=== PATIENT | male | born 1950 | race American Indian/Alaskan Native ===

== ENCOUNTER 2016-06-11 06:05 | Day surgery (SDC) | payer MEDICARE ==
[~2016-06-11 06:05] MED LIST: PEPCID PO NR
[2016-06-11] MEDS ORDERED: NACL BACTERIOSTATIC INFILTRATI ONE (06:28)
[2016-06-11] MEDS ORDERED: PERCOCET 5/325 PO PRN (06:45)
--- NOTE | 2016-06-11 06:45 | Anesthesia Consultation ---
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) Hx Sleep Apnea: No (GUILHERME PRE SCREEN HIGH RISK) - Cardiovascular System Hx Hypertension: Yes (X 4 YRS) Hx Coronary Artery Disease: No Hx Heart Attack/AMI: No Hx Angina: No Hx Cardia Arrhythmia: No Hx Heart Murmur: No - Central Nervous System Hx Neuromuscular Disorder: (s/p shingles; hx right leg fx) Hx Psychiatric Problems: No - Gastrointestinal Hx Gastroesophageal Reflux Disease: No - Endocrine Hx End Stage Renal Disease: No Hx Liver Disease: No Hx Non-Insulin Dependent Diabetes: No Hx Thyroid Disease: No - Other Systems Hx Alcohol Use: No Hx Substance Use: No Hx Cancer: Yes (Prostate CA/RADIATION 2014)
--- NOTE | 2016-06-11 06:45 | Anesthesia Day of Surgery ---
Anesthesia Day of Surgery - Day of Surgery Patient Examined: Yes Patient H&P Reviewed: Yes Patient is NPO: Yes
[2016-06-11] MEDS: NACL 0.9% 1000 ML 1,000 ML IV SCH ×2 (06:55→09:15)
[2016-06-11] MEDS ORDERED: SUBLIMAZE ONE (07:13)
[2016-06-11] MEDS ORDERED: DIPRIVAN 10 MG/ML IV ONE (07:13)
[2016-06-11] MEDS ORDERED: XYLOCAINE MPF 2% ONE (07:13)
[2016-06-11] MEDS: VERSED IV NR ×2 (07:15→08:00)
[2016-06-11 07:16] LABS: Hematocrit 35.5 % (35.5-45.6); Hemoglobin 11.1 gm/dl (11.8-15.2)
[2016-06-11 07:30] LABS: BUN/Creatinine Ratio 13.33; Calcium 9.3 mg/dL (8.4-10.2); Chloride 102.5 mmol/L (98-107); Potassium 4.3 mmol/L (3.6-5.0)
[2016-06-11] MEDS ORDERED: ePHEDrine SULFATE ONE (08:22)
[2016-06-11] MEDS ORDERED: DECADRON ONE (08:27)
[2016-06-11] MEDS ORDERED: ZOFRAN ONE (08:27)
[2016-06-11] MEDS ORDERED: OMNIPAQUE (300 MG) IV ONE (08:34)
[2016-06-11] MEDS ORDERED: WATER FOR IRRIG STERILE IR ONE (08:34)
[2016-06-11] MEDS ORDERED: ANCEF/STERILE WATER 2 GM/20 ML IV NR (09:00)
--- NOTE | 2016-06-11 09:00 | Post Operative Note ---
Pre-op diagnosis: L ureteral stricture Post-op diagnosis: same Findings: as above Procedure: cysto l stent exchange Anesthesia: GETA Surgeon: HERMILA HALLMAN Estimated blood loss: none Pathology: none Condition: stable Disposition: PACU
--- NOTE | 2016-06-11 09:02 | Discharge Summary ---
Short Stay Discharge Plan Activity: other (no straining ) Weight Bearing Status: Full Weight Bearing Diet: regular Special Instructions: other (inc fluids ) Durable Medical Equipment Needed Upon Discharge: other (j stent ) Follow up with: SAV ZIEGLER II, MD [Primary Care Provider] - 7 Days HERMILA HALLMAN MD [Staff Physician] - 6 Weeks
[2016-06-11] MEDS: DILAUDID IV PRN ×2 (09:10→09:31)
--- NOTE | 2016-06-11 09:21 | Post Anesthesia Evaluation ---
- Post Anesthesia Evaluation Patient Participated: Yes Airway Patent: Yes Stable Respiratory Function: Yes Nausea/Vomiting: No Temp > 96.8F: Yes Pain Manageable: Yes Adequeate Hydration: Yes Anesthesia Complications: No Block Receding Appropriately: Not Applicable Patient on Ventilator: No
--- NOTE | 2016-06-11 09:26 | Operative Report ---
INDICATIONS: The patient is a gentleman with a history of extensive prostate cancer, post radical prostatectomy. He developed a post-radiation and likely from extensive disease, a left ureteral stricture. This has been treated with stenting. He has done quite well. We had a 7-Turkish 24 cm double J, he did well, now presents for stent exchange. DESCRIPTION OF PROCEDURE: The patient was brought to the operating room and placed on the operating table. Following induction of anesthesia, placed in lithotomy position, prepped and draped in usual sterile fashion. Cystourethroscopy showed the stent. There was minimal erythema around the stent. The urethra was quite narrow through the penile urethra, but no distinct stricture, just quite narrow. The bladder neck was wide open. At this point, the stent was grasped and wire placed up in the kidney and stent exchanged to a 7 x 24 once again. The patient tolerated the procedure well and brought to recovery room, family notified, without a Dow in stable condition. JOB# [id number] TREVOR/CINDY
--- NOTE | 2016-06-11 10:13 | XRay Report ---
SUPINE KUB: The abdominal gas pattern is unremarkable. No masses or organomegaly is identified and there is no gross evidence of free air or fluid. No significant soft tissue calcifications are noted. Left ureteral stent exchange was performed by Dr. Madsen. IMPRESSION: No acute abdominal process.
[2016-06-11 11:21] VITALS: BP 165/88
== END 2016-06-11 11:10 | disposition home or self-care (01) ==
LOC: OR 06:05
PROVIDERS: ATTEND Urology
DX: N13.1 Hydronephrosis with ureteral stricture, not elsewhere classified (principal); I10 Essential (primary) hypertension; Z90.79 Acquired absence of other genital organ(s); Z85.46 Personal history of malignant neoplasm of prostate; Z82.49 Family history of ischemic heart disease and other diseases of the circulatory system; Z80.8 Family history of malignant neoplasm of other organs or systems; Z87.891 Personal history of nicotine dependence
CPT/HCPCS: 36415; 52332; 74000; 80048; 85014; 85018; A4217; C2617; J1100; J1170; J2250; J2405; J2704; J3010; J7030; Q9967

== ENCOUNTER 2016-09-26 10:25 | Day surgery (SDC) | payer MEDICARE ==
[~2016-09-26 10:25] MED LIST changes: +NACL 0.9% 1000 ML 1,000 ML IV SCH
[2016-09-26] MEDS ORDERED: ZOFRAN IV PRN (11:26)
[2016-09-26] MEDS ORDERED: PERCOCET 5/325 PO PRN (11:26)
[2016-09-26] MEDS ORDERED: MORPHINE IV PRN (11:26)
--- NOTE | 2016-09-26 11:26 | Anesthesia Day of Surgery ---
Anesthesia Day of Surgery - Day of Surgery Patient Examined: Yes Patient H&P Reviewed: Yes Patient is NPO: Yes
--- NOTE | 2016-09-26 11:26 | Anesthesia Consultation ---
Anesthesia Consult and Med Hx Date of service: 09/26/16 - Airway Anesthetic Teeth Evaluation: Dentures, Edentulous ROM Head & Neck: Adequate Mental/Hyoid Distance: Adequate Mallampati Class: Class II Intubation Access Assessment: Probably Good - Pulmonary Exam CTA: Yes - Cardiac Exam Cardiac Exam: RRR - Pre-Operative Health Status ASA Pre-Surgery Classification: ASA3 Proposed Anesthetic Plan: General - Pulmonary Hx Smoking: Yes (STOPPED X 15 YRS-/4-1/2 PPD) Hx Asthma: No SOB: No Hx Sleep Apnea: No (GUILHERME PRE SCREEN HIGH RISK.) - Cardiovascular System Hx Hypertension: Yes (X 4 YRS) Hx Cardia Arrhythmia: No Hx Heart Murmur: No - Central Nervous System Hx Seizures: No CVA: No Hx Psychiatric Problems: No - Gastrointestinal Hx Gastroesophageal Reflux Disease: No - Endocrine Hx Renal Disease: No (hydronephrosis of right kidney 2/2 scarring) Hx End Stage Renal Disease: No Hx Liver Disease: No Hx Non-Insulin Dependent Diabetes: No Hx Thyroid Disease: No - Other Systems Hx Alcohol Use: No Hx Substance Use: No Hx Cancer: Yes (prostate 2015 s/p surgery and radiation) Hx Obesity: No - Additional Comments Anesthesia Medical History Comments: h/o shingles on right chest, no prior anesthesia problems.
[2016-09-26 11:42] LABS: BUN/Creatinine Ratio 14.11; Calcium 9.3 mg/dL (8.4-10.2); Chloride 102.6 mmol/L (98-107); Potassium 4.3 mmol/L (3.6-5.0)
[2016-09-26] MEDS ORDERED: ANCEF/STERILE WATER 2 GM/20 ML 2 GM/20 ML SYRINGE IV NR (12:00)
[2016-09-26] MEDS ORDERED: XYLOCAINE MPF 2% ONE (12:29)
[2016-09-26] MEDS ORDERED: DIPRIVAN 10 MG/ML IV ONE (12:29)
[2016-09-26] MEDS ORDERED: DILAUDID ONE (12:29)
[2016-09-26] MEDS ORDERED: ePHEDrine SULFATE ONE (13:00)
[2016-09-26] MEDS ORDERED: OMNIPAQUE (300 MG) IR ONE (13:08)
[2016-09-26] MEDS ORDERED: WATER FOR IRRIG STERILE IR ONE ×2 (13:09)
[2016-09-26] MEDS ORDERED: ZOFRAN ONE (13:18)
[2016-09-26] MEDS ORDERED: NACL 0.9% 1000 ML 1,000 ML ONE (13:20)
--- NOTE | 2016-09-26 13:59 | Post Operative Note ---
Date of procedure: 09/26/16 Pre-op diagnosis: L hydro Post-op diagnosis: same Findings: as above Procedure: cysto stent change Anesthesia: ARI Surgeon: HERMILA HALLMAN Estimated blood loss: none Pathology: none Condition: stable Disposition: PACU
--- NOTE | 2016-09-26 14:07 | Post Anesthesia Evaluation ---
- Post Anesthesia Evaluation Patient Participated: Yes Airway Patent: Yes Stable Respiratory Function: Yes Nausea/Vomiting: No Temp > 96.8F: Yes Pain Manageable: Yes Adequeate Hydration: Yes Anesthesia Complications: No
--- NOTE | 2016-09-26 14:11 | XRay Report ---
Retrograde pyelogram: Hydronephrosis. Initial image demonstrates a left nephroureteral stent. This apparently was exchanged for a new stent which appears in good positioning within the kidney and bladder. No other information.
--- NOTE | 2016-09-26 14:15 | Operative Report ---
PREOPERATIVE DIAGNOSES: Prostate cancer, distal left ureteral stricture. POSTOPERATIVE DIAGNOSES: Prostate cancer, distal left ureteral stricture. PROCEDURE: Cystoscopy, stent exchange. SURGEON: Dante Madsen MD ANESTHESIA: General. FINDINGS: This is a gentleman who has a distal ureteral stricture. Each time, we tried to take the stent out, he develops an infection, get sick, so he now presents for stent exchange. DESCRIPTION OF PROCEDURE: The patient was brought to the operating room and placed on the operating table. Following induction of anesthesia, placed in lithotomy position, prepped and draped in usual sterile fashion. Cystourethroscopy easily showed the stent, which was withdrawn from the meatus. A wire coiled in the kidney and a 7-Swedish J-stent coiled in the kidney and bladder. The patient tolerated the procedure well. No significant complication. No catheter was left. He was brought to recovery room in stable condition. JOB# [id number] TREVOR/CINDY
[2016-09-26 14:16] VITALS: BP 162/75
== END 2016-09-26 14:54 | disposition home or self-care (01) ==
LOC: OR 10:25
PROVIDERS: ATTEND Urology
DX: T83.592A Infection and inflammatory reaction due to indwelling ureteral stent, initial encounter (principal); N13.1 Hydronephrosis with ureteral stricture, not elsewhere classified; C61 Malignant neoplasm of prostate; I10 Essential (primary) hypertension; Z87.891 Personal history of nicotine dependence; Y83.8 Other surgical procedures as the cause of abnormal reaction of the patient, or of later complication, without mention of misadventure at the time of the procedure
CPT/HCPCS: 36415; 52332; 74000; 80048; A4217; J0690; J1170; J2405; J2704; J7030; Q9967; C1758; C1769; C2617

== ENCOUNTER 2017-02-15 12:25 | Day surgery (SDC) | payer BC, MEDICARE ==
--- NOTE | 2017-02-15 13:45 | Anesthesia Consultation ---
Anesthesia Consult and Med Hx Date of service: 02/15/17 - Airway Anesthetic Teeth Evaluation: Edentulous ROM Head & Neck: Adequate Mental/Hyoid Distance: Adequate Mallampati Class: Class II Intubation Access Assessment: Probably Good - Pulmonary Exam CTA: Yes - Cardiac Exam Cardiac Exam: RRR - Pre-Operative Health Status ASA Pre-Surgery Classification: ASA2 Proposed Anesthetic Plan: General - Pulmonary Hx Smoking: Yes (STOPPED X 15 YRS-06/06-06/04 PPD) Hx Asthma: No SOB: No Hx Sleep Apnea: No (GUILHERME PRE SCREEN HIGH RISK.) - Cardiovascular System Hx Hypertension: Yes (X 4 YRS) Hx Cardia Arrhythmia: No Hx Heart Murmur: No - Central Nervous System Hx Neuromuscular Disorder: (s/p shingles; hx right leg fx) Hx Seizures: No CVA: No Hx Psychiatric Problems: No - Gastrointestinal Hx Gastroesophageal Reflux Disease: No - Endocrine Hx Renal Disease: No Hx End Stage Renal Disease: No Hx Liver Disease: No Hx Non-Insulin Dependent Diabetes: No Hx Thyroid Disease: No - Other Systems Hx Alcohol Use: No Hx Substance Use: No Hx Cancer: Yes (prostate 2015 s/p surgery and radiation) Hx Obesity: No
--- NOTE | 2017-02-15 13:45 | Anesthesia Day of Surgery ---
Anesthesia Day of Surgery - Day of Surgery Patient Examined: Yes Patient H&P Reviewed: Yes Patient is NPO: Yes
[2017-02-15] MEDS ORDERED: DILAUDID IV NR (13:50)
[2017-02-15] MEDS ORDERED: DIPRIVAN 10 MG/ML IV ONE (13:56)
[2017-02-15] MEDS ORDERED: SUBLIMAZE ONE (13:56)
[2017-02-15] MEDS ORDERED: XYLOCAINE MPF 2% ONE (13:56)
[2017-02-15] MEDS ORDERED: ZOFRAN IV PRN (14:15)
[2017-02-15] MEDS ORDERED: ANCEF ONE (15:16)
[2017-02-15] MEDS ORDERED: WATER FOR IRRIG STERILE IR ONE (15:24)
[2017-02-15] MEDS ORDERED: OMNIPAQUE 300 MG/50 ML (CATH LAB) IV ONE (15:24)
[2017-02-15] MEDS ORDERED: ROBINUL ONE (15:35)
--- NOTE | 2017-02-15 16:11 | Fluoroscopy Report ---
Retrograde pyelogram: The initial image demonstrates the presence of a left nephroureteral stent. Numerous surgical clips are seen in the pelvis consistent with jagjit dissection. Injection of contrast into the right ureter is unremarkable with good opacification of the ureter and renal collecting system. At some point contrast apparently was injected on the left since is a small amount of contrast in slightly dilated calyces. A left internal stent was left in place.
--- NOTE | 2017-02-15 16:12 | Short Stay Summary ---
Short Stay Documentation Date of service: 02/15/17 - History H&P: obtained from office - Allergies and Medications Current Medications: Allergies No Known Allergies Allergy (Verified 06/01/16 14:18) Home Medications Medication Instructions Recorded Confirmed Last Taken Type Aspirin EC [Aspirin Enteric Coated 81 mg PO DAILY 12/02/14 02/11/17 02/08/17 History TAB] amLODIPine [Norvasc] 10 mg PO DAILY 12/02/14 02/15/17 02/14/17 History Active Medications Famotidine (Pepcid) 20 mg PO PREOP NR Stop: 02/15/17 23:59 Last Admin: 02/15/17 12:59 Dose: 20 mg Hydromorphone HCl (Dilaudid) 0.5 mg IV Q10MIN PRN PRN Reason: Pain , Severe (7-10) Stop: 02/18/17 14:16 Sodium Chloride (Nacl 0.9% 1000 Ml) 1,000 mls @ 75 mls/hr IV DIRECT BESSIE Last Admin: 02/15/17 13:00 Dose: 75 mls/hr - Brief post op/procedure progress note Date of procedure: 02/15/17 Post-op diagnosis: same Procedure: cysto, brpg, left stnet xchange 7x24 Anesthesia: GETA Findings: nodev Surgeon: RONALD MYERS Estimated blood loss: minimal Pathology: none Condition: stable - Hospital course Hospital course: orpacuhome - Disposition Condition at discharge: Good Disposition: DC-01 TO HOME OR SELFCARE Short Stay Discharge Plan Activity: advance as tolerated Diet: advance as tolerated Follow up with: HERMILA HALLMAN MD [Staff Physician] - 7 Days
[2017-02-15] MEDS: DILAUDID IV PRN ×3 (16:40→18:10)
[2017-02-15] MEDS ORDERED: NORCO 5/325 PO PRN ×2 (16:51→18:08)
[2017-02-15] MEDS ORDERED: NORMODYNE IV ONE ×2 (16:54→19:00)
[2017-02-15 20:30] VITALS: BP 150/76
--- NOTE | 2017-02-27 08:50 | Operative Report ---
UROLOGY OPERATION NOTE PREOPERATIVE DIAGNOSES: Prostate cancer and hydronephrosis. POSTOPERATIVE DIAGNOSES: Prostate cancer and hydronephrosis. PROCEDURE: Cystoscopy, bilateral RPG, left stent exchange 7 x 24. ANESTHESIA: General. FINDINGS: No deviation. SURGEON: Jimy Bae MD ESTIMATED BLOOD LOSS: Minimal. PATHOLOGY: None. CONDITION: Stable. CLINICAL INDICATIONS: Counseled on RCBA, antibiotics, SCDs. The patient is here for stent exchange, antibiotics, SCDs. DESCRIPTION OF PROCEDURE: The patient was transferred to OR suite in supine position, anesthesia, dorsal lithotomy, prepped and draped in standard fashion. A 22-Anguillan scope passed into the bladder. Upon entering the bladder, right UO cannulated 8-Anguillan cone-tipped catheter, contrast injected. Normal right distal ureter, proximal ureter, renal pelvis calyces. Delayed film was drained adequately with not significant hydro left stent visualized. Glidewire passed adjacent to this up to the renal pelvis. Stent grasped, pulled out intact. A 7 x 24 double-J stent was passed over the wire under direct and fluoroscopic visualization when the wire and string, nice proximal and distal J within the bladder, bladder drained. Scope removed. The patient awakened and transferred to the PACU in good and stable condition. JOB# [id number] ATS/NTS
== END 2017-02-15 20:05 | disposition home or self-care (01) ==
LOC: OR 12:25
PROVIDERS: ATTEND Urology
DX: N13.30 Unspecified hydronephrosis (principal); I10 Essential (primary) hypertension; Z87.891 Personal history of nicotine dependence; Z85.46 Personal history of malignant neoplasm of prostate; Z79.899 Other long term (current) drug therapy; Z79.82 Long term (current) use of aspirin
CPT/HCPCS: 52332; 74420; A4217; C1758; C1769; C2617; J0690; J1170; J2704; J3010; J7030; Q9967

== ENCOUNTER 2017-07-03 09:57 | Day surgery (SDC) | payer MEDICARE ==
[2017-07-03] MEDS ORDERED: NACL BACTERIOSTATIC INFILTRATI ONE (11:28)
--- NOTE | 2017-07-03 11:29 | Anesthesia Consultation ---
Anesthesia Consult and Med Hx Date of service: 07/03/17 - Airway Anesthetic Teeth Evaluation: Dentures (upper/lower) ROM Head & Neck: Adequate Mental/Hyoid Distance: Adequate Mallampati Class: Class II Intubation Access Assessment: Probably Good - Pulmonary Exam CTA: Yes - Cardiac Exam Cardiac Exam: RRR - Pre-Operative Health Status ASA Pre-Surgery Classification: ASA2 Proposed Anesthetic Plan: General - Pulmonary Hx Smoking: Yes (ex smoker ) - Cardiovascular System Hx Hypertension: Yes (X 5 YRS) - Other Systems Hx Cancer: Yes (prostate 2015 s/p surgery and radiation)
--- NOTE | 2017-07-03 11:31 | Anesthesia Day of Surgery ---
Anesthesia Day of Surgery - Day of Surgery Patient Examined: Yes Patient H&P Reviewed: Yes Patient is NPO: Yes
[2017-07-03] MEDS ORDERED: PEPCID PO NR (12:00)
[2017-07-03] MEDS ORDERED: VERSED IV NR (12:00)
[2017-07-03] MEDS ORDERED: DECADRON ONE (12:27)
[2017-07-03] MEDS ORDERED: ZOFRAN ONE (12:27)
[2017-07-03] MEDS ORDERED: XYLOCAINE MPF 2% ONE (12:27)
[2017-07-03] MEDS ORDERED: DIPRIVAN 10 MG/ML IV ONE (12:27)
[2017-07-03] MEDS ORDERED: OMNIPAQUE (300 MG) IR ONE (12:30)
[2017-07-03] MEDS ORDERED: WATER FOR IRRIG STERILE IR ONE (12:30)
[2017-07-03] MEDS ORDERED: ceFAZolin 1 GM in NACL 0.9% 20 ML IV STA ×2 (12:33→12:34)
[2017-07-03] MEDS ORDERED: NACL 0.9% 1000 ML 1,000 ML IV SCH (12:40)
[2017-07-03] MEDS ORDERED: DILAUDID ONE (12:52)
[2017-07-03] MEDS ORDERED: ANCEF ONE ×2 (12:57)
[2017-07-03] MEDS ORDERED: ANCEF/NS 1 GM/50 ML 1 GM/50 ML BAG IV NR (13:00)
--- NOTE | 2017-07-03 13:20 | Post Operative Note ---
Date of procedure: 07/03/17 Pre-op diagnosis: L ureteral stricture Post-op diagnosis: same Findings: stent Procedure: cysto stent exchange Anesthesia: ARI Surgeon: HERMILA HALLMAN Estimated blood loss: none Pathology: none Condition: stable Disposition: PACU
--- NOTE | 2017-07-03 13:21 | Discharge Summary ---
Short Stay Discharge Plan Activity: no restrictions, other Weight Bearing Status: Full Weight Bearing Diet: regular Special Instructions: other (inc fluids ) Durable Medical Equipment Needed Upon Discharge: other (j stnet ) Follow up with: SAV ZIEGLER II, MD [Primary Care Provider] - 7 Days HERMILA HALLMAN MD [Staff Physician] - 6 Weeks
[2017-07-03] MEDS ORDERED: SUBLIMAZE IV PRN (13:26)
[2017-07-03] MEDS ORDERED: ZOFRAN IV PRN (13:26)
--- NOTE | 2017-07-03 15:30 | Operative Report ---
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 PROCEDURE: Cystoscopy, stent exchange. SURGEON: Dante Madsen MD. ANESTHESIA: General. FINDINGS: This is a gentleman with recurrent stricture, left distal ureter. We offered him a reimplant. At this point, he is doing well with stent exchange. He now presents for stent exchange. DESCRIPTION OF PROCEDURE: The patient was brought to the operating room and placed on the operating table. Following induction of anesthesia, placed in lithotomy position, prepped and draped in usual sterile fashion. Cystourethroscopy showed no papillary lesions. The stent was withdrawn and a wire coiled in the kidney. A 7-Bulgarian 24 cm double J coiled in the kidney and bladder. The patient tolerated the procedure well and brought to recovery in stable condition. JOB# [id number] TREVOR/CINDY
[2017-07-03 18:38] VITALS: BP 157/84
--- NOTE | 2017-07-04 07:44 | XRay Report ---
KUB: Left urinary tract stent exchange. Left internal stent present and in good position exchanged with prior stent as seen on February 15, 2017. Operative clips in low pelvis consistent with jagjit dissection. No other findings.
== END 2017-07-03 16:00 | disposition home or self-care (01) ==
LOC: OR 09:57
PROVIDERS: ATTEND Urology
DX: N13.30 Unspecified hydronephrosis (principal); C63.7 Malignant neoplasm of other specified male genital organs; N28.89 Other specified disorders of kidney and ureter; N13.8 Other obstructive and reflux uropathy; I10 Essential (primary) hypertension; Z79.899 Other long term (current) drug therapy; Z79.82 Long term (current) use of aspirin; Z87.891 Personal history of nicotine dependence
CPT/HCPCS: 52310; 74018; A4217; C1769; C2617; J0690; J1100; J1170; J2250; J2405; J2704; J7030; Q9967

== ENCOUNTER 2017-09-23 08:27 | Day surgery (SDC) | payer BC, MEDICARE ==
[2017-09-23] MEDS ORDERED: DILAUDID IV PRN (09:34)
[2017-09-23] MEDS ORDERED: NACL BACTERIOSTATIC INFILTRATI ONE (09:36)
[2017-09-23] MEDS ORDERED: NACL 0.9% 1000 ML 1,000 ML IV SCH (10:00)
[2017-09-23] MEDS ORDERED: ZOFRAN IV PRN (10:00)
--- NOTE | 2017-09-23 10:09 | Anesthesia Consultation ---
Anesthesia Consult and Med Hx Date of service: 09/23/17 - Airway Anesthetic Teeth Evaluation: Dentures ROM Head & Neck: Adequate Mental/Hyoid Distance: Adequate Mallampati Class: Class II Intubation Access Assessment: Good - Pulmonary Exam CTA: Yes - Cardiac Exam Cardiac Exam: RRR - Pre-Operative Health Status ASA Pre-Surgery Classification: ASA3 Proposed Anesthetic Plan: General - Pulmonary Hx Smoking: Yes (STOPPED X 16 YRS-1/2PPD) Hx Asthma: No SOB: No Hx Sleep Apnea: No (GUILHERME PRE SCREEN HIGH RISK.) - Cardiovascular System Hx Hypertension: Yes (X 5 YRS) Hx Cardia Arrhythmia: No Hx Heart Murmur: No - Central Nervous System Hx Neuromuscular Disorder: (s/p shingles; hx right leg fx) Hx Seizures: No CVA: No Hx Psychiatric Problems: No - Gastrointestinal Hx Gastroesophageal Reflux Disease: No - Endocrine Hx Renal Disease: No Hx End Stage Renal Disease: No Hx Liver Disease: No Hx Non-Insulin Dependent Diabetes: No Hx Thyroid Disease: No - Other Systems Hx Alcohol Use: No Hx Substance Use: No Hx Cancer: Yes (prostate 2015 s/p surgery and radiation) Hx Obesity: No
--- NOTE | 2017-09-23 10:09 | Anesthesia Day of Surgery ---
Anesthesia Day of Surgery - Day of Surgery Patient Examined: Yes Patient H&P Reviewed: Yes Patient is NPO: Yes
[2017-09-23] MEDS ORDERED: ANCEF/STERILE WATER 2 GM/20 ML IV NR (10:30)
[2017-09-23] MEDS ORDERED: DILAUDID ONE (12:08)
[2017-09-23] MEDS ORDERED: DIPRIVAN 10 MG/ML IV ONE (12:09)
[2017-09-23] MEDS ORDERED: OMNIPAQUE (300 MG) IR ONE (12:15)
[2017-09-23] MEDS ORDERED: WATER FOR IRRIG STERILE IR ONE (12:15)
[2017-09-23] MEDS ORDERED: XYLOCAINE MPF 2% ONE (12:20)
--- NOTE | 2017-09-23 12:52 | Post Operative Note ---
Date of procedure: 09/23/17 Pre-op diagnosis: left distal stricture Post-op diagnosis: same Findings: as above Procedure: cuysto stent exchange Anesthesia: GETA Surgeon: HERMILA HALLMAN Estimated blood loss: none Condition: stable Disposition: PACU
--- NOTE | 2017-09-23 12:53 | Discharge Summary ---
Short Stay Discharge Plan Activity: other (no straining ) Weight Bearing Status: Full Weight Bearing Diet: regular Special Instructions: other (pt has j stent ) Durable Medical Equipment Needed Upon Discharge: other (stent) Follow up with: SAV ZIEGLER II, MD [Primary Care Provider] - 7 Days HERMILA HALLMAN MD [Staff Physician] - 6 Weeks
[2017-09-23] MEDS ORDERED: ZOFRAN ONE (12:54)
[2017-09-23 14:36] VITALS: BP 160/73
--- NOTE | 2017-09-23 18:24 | Operative Report ---
PREOPERATIVE DIAGNOSIS: Distal left ureteral stricture. POSTOPERATIVE DIAGNOSIS: Distal left ureteral stricture. PROCEDURE: Cystoscopy, stent exchange. SURGEON: Dante Madsen MD. ANESTHESIA: General. FINDINGS: This is a gentleman, who has a radiation stricture of distal left ureter. He does well with stent exchange. He now presents for exchange. DESCRIPTION OF PROCEDURE: The patient was brought to the operating room and placed on the operating table. Following induction of anesthesia, placed in lithotomy position, prepped and draped in usual sterile fashion. Cystourethroscopy revealed a stent, which was grasped out of the meatus. There were no bladder lesions. The wire was coiled up in the kidney without difficulty over the stent. We tried a 7-Portuguese, but it coiled the opposite way, so we changed it ____ and it still coiled the opposite way in the kidney. We used a ____. The patient tolerated the procedure well with no significant complications. He was brought to recovery in stable condition. The wire went up easily through the stent without difficulty and he was brought to recovery room without a Dow. JOB# [id number] TREVOR/CINDY
--- NOTE | 2017-09-23 22:41 | XRay Report ---
FINAL REPORT PROCEDURE: XR ABDOMEN 1V AP TECHNIQUE: Four fluoroscopic spot images the abdomen and pelvis were submitted for dictation HISTORY: HYDRONEPHROSIS COMPARISON: No prior studies are available for comparison. FINDINGS: A double-J pigtail catheter is noted on the left side with the proximal pigtail in the left upper quadrant and distal pigtail in the region of urinary bladder. Multiple surgical clips are identified in the pelvis. Intestinal gas pattern is nonspecific. IMPRESSION: Four fluoroscopic spot images demonstrating a left-sided double-J ureteral stent.
== END 2017-09-23 14:35 | disposition home or self-care (01) ==
LOC: OR 08:27
PROVIDERS: ATTEND Urology
DX: N13.1 Hydronephrosis with ureteral stricture, not elsewhere classified (principal); Z87.891 Personal history of nicotine dependence; I10 Essential (primary) hypertension
CPT/HCPCS: 52332; 74018; A4217; C1769; C2617; J0690; J1170; J2405; J2704; J7030; Q9967

== ENCOUNTER 2017-11-25 06:37 | Day surgery (SDC) | payer BC, MEDICARE ==
[2017-11-25] MEDS ORDERED: DILAUDID IV PRN (08:25)
[2017-11-25] MEDS ORDERED: NEURONTIN ONE (08:38)
[2017-11-25] MEDS ORDERED: TYLENOL ONE (08:39)
[2017-11-25] MEDS ORDERED: PEPCID IV ONE (08:39)
--- NOTE | 2017-11-25 08:56 | Anesthesia Day of Surgery ---
Anesthesia Day of Surgery - Day of Surgery Patient Examined: Yes Patient H&P Reviewed: Yes Patient is NPO: Yes
--- NOTE | 2017-11-25 08:57 | Anesthesia Consultation ---
Anesthesia Consult and Med Hx Date of service: 11/25/17 - Airway Anesthetic Teeth Evaluation: Edentulous ROM Head & Neck: Adequate Mental/Hyoid Distance: Adequate Mallampati Class: Class II Intubation Access Assessment: Probably Good - Pulmonary Exam CTA: Yes - Cardiac Exam Cardiac Exam: RRR - Pre-Operative Health Status ASA Pre-Surgery Classification: ASA2 Proposed Anesthetic Plan: General - Pulmonary Hx Smoking: Yes (STOPPED X 16 YRS-1/2PPD) Hx Asthma: No SOB: No Hx Sleep Apnea: No (GUILHERME PRE SCREEN HIGH RISK.) - Cardiovascular System Hx Hypertension: Yes (X 5 YRS) Hx Cardia Arrhythmia: No Hx Heart Murmur: No - Central Nervous System Hx Neuromuscular Disorder: (s/p shingles; hx right leg fx) Hx Seizures: No CVA: No Hx Psychiatric Problems: No - Gastrointestinal Hx Gastroesophageal Reflux Disease: No - Endocrine Hx Renal Disease: No Hx End Stage Renal Disease: No Hx Liver Disease: No Hx Non-Insulin Dependent Diabetes: No Hx Thyroid Disease: No - Other Systems Hx Alcohol Use: No Hx Substance Use: No Hx Cancer: Yes (prostate 2015 s/p surgery and radiation) Hx Obesity: No
[2017-11-25] MEDS ORDERED: ANCEF/STERILE WATER 2 GM/20 ML 2 GM/20 ML SYRINGE IV NR (09:00)
[2017-11-25] MEDS ORDERED: VERSED IV NR (09:00)
[2017-11-25] MEDS ORDERED: LACTATED RINGERS 1,000 ML IV SCH ×2 (09:00→11:00)
[2017-11-25] MEDS ORDERED: XYLOCAINE CARDIAC IV ONE (09:51)
[2017-11-25] MEDS ORDERED: DIPRIVAN 10 MG/ML IV ONE (09:51)
[2017-11-25] MEDS ORDERED: VERSED ONE (09:51)
[2017-11-25] MEDS ORDERED: ePHEDrine 50 MG/5 ML-0.9% NACL IV ONE (10:06)
[2017-11-25] MEDS ORDERED: OMNIPAQUE (300 MG) IR ONE (10:10)
[2017-11-25] MEDS ORDERED: ROBINUL ONE (10:14)
[2017-11-25] MEDS ORDERED: ZOFRAN ONE (10:14)
[2017-11-25] MEDS ORDERED: GARAMYCIN/NS 80 MG/100 ML 100 ML IV ONE (10:21)
--- NOTE | 2017-11-25 10:30 | Post Operative Note ---
Date of procedure: 11/25/17 Pre-op diagnosis: l hydro stricture Post-op diagnosis: same Findings: distal stricture Procedure: cysto stent exchange Anesthesia: ARI Surgeon: HERMILA HALLMAN Estimated blood loss: none Pathology: none Condition: stable Disposition: PACU
--- NOTE | 2017-11-25 10:34 | Discharge Summary ---
Short Stay Discharge Plan Activity: other Weight Bearing Status: Full Weight Bearing Diet: regular Special Instructions: other (inc fluids ) Follow up with: SAV ZIEGLER II, MD [Primary Care Provider] - 7 Days HERMILA HALLMAN MD [Staff Physician] - 7 Days
--- NOTE | 2017-11-25 11:23 | Operative Report ---
PREOPERATIVE DIAGNOSES: Left distal ureteral stricture, left hydronephrosis. POSTOPERATIVE DIAGNOSES: Left distal ureteral stricture, left hydronephrosis. PROCEDURE: Cystoscopy, stent exchange. SURGEON: Dante Madsen MD ANESTHESIA: General. FINDINGS: This is a gentleman who has a distal ureteral stricture with local invasion of prostate cancer with radiation, now presents for stent exchange. He also has had old shingles. DESCRIPTION OF PROCEDURE: The patient was brought to the operating room and placed in the operating table. Following induction of anesthesia, placed in lithotomy position, prepped and draped in usual sterile fashion. Cystourethroscopy revealed a stent, which was extracted from the meatus. A wire coiled up in the kidney and a 7-Micronesian 24 cm stent was placed up in the left ureter. The patient tolerated the procedure well. No bladder lesions were noted. The prostate has previously been removed, wide open bladder neck. The patient tolerated the procedure well and brought to recovery in stable condition. [facility]# [id number] TREVOR/CINDY
[2017-11-25 13:40] VITALS: BP 164/75
--- NOTE | 2017-11-26 08:57 | XRay Report ---
AP ABDOMEN: HISTORY: Left hydronephrosis. The abdominal gas pattern is unremarkable. No masses or organomegaly is identified and there is no gross evidence of free air or fluid. A left ureteral stent is in place. There are multiple surgical clips on both side of the bladder, correlate with surgical history. Left ureteral stent replacement was performed by the urologist. IMPRESSION: Unremarkable abdomen. Left ureteral stent replacement.
== END 2017-11-25 13:35 | disposition home or self-care (01) ==
LOC: OR 06:37
PROVIDERS: ATTEND Urology
DX: N13.1 Hydronephrosis with ureteral stricture, not elsewhere classified (principal); I10 Essential (primary) hypertension; Z87.891 Personal history of nicotine dependence; Z85.46 Personal history of malignant neoplasm of prostate; Z92.3 Personal history of irradiation
CPT/HCPCS: 52332; 74018; 88300; C1769; C2617; J0690; J1580; J2001; J2250; J2405; J2704; J7120; 88302

== ENCOUNTER 2018-08-04 08:01 | Day surgery (SDC) | payer OTHER, MEDICARE ==
[2018-08-04] MEDS ORDERED: DIPRIVAN 10 MG/ML IV ONE (09:22)
[2018-08-04] MEDS ORDERED: SUBLIMAZE ONE (09:24)
[2018-08-04] MEDS ORDERED: LACTATED RINGERS 1,000 ML ONE (09:32)
--- NOTE | 2018-08-04 09:34 | Anesthesia Consultation ---
Anesthesia Consult and Med Hx Date of service: 08/04/18 - Airway Anesthetic Teeth Evaluation: Dentures ROM Head & Neck: Adequate Mental/Hyoid Distance: Adequate Mallampati Class: Class II Intubation Access Assessment: Probably Good - Pulmonary Exam CTA: Yes - Cardiac Exam Cardiac Exam: No Murmur - Pre-Operative Health Status ASA Pre-Surgery Classification: ASA3 Proposed Anesthetic Plan: General - Pulmonary Hx Smoking: Yes (STOPPED X 16 YRS-1/2PPD) Hx Asthma: No SOB: No Hx Sleep Apnea: No (GUILHERME PRE SCREEN HIGH RISK.) - Cardiovascular System Hx Hypertension: Yes (X 5 YRS) Hx Cardia Arrhythmia: No Hx Heart Murmur: No - Central Nervous System Hx Neuromuscular Disorder: (s/p shingles; hx right leg fx) Hx Seizures: No CVA: No Hx Psychiatric Problems: No - Gastrointestinal Hx Gastroesophageal Reflux Disease: No - Endocrine Hx Renal Disease: No Hx End Stage Renal Disease: No Hx Liver Disease: No Hx Non-Insulin Dependent Diabetes: No Hx Thyroid Disease: No - Other Systems Hx Alcohol Use: No Hx Substance Use: No Hx Cancer: Yes Hx Obesity: No
--- NOTE | 2018-08-04 09:36 | Anesthesia Day of Surgery ---
Anesthesia Day of Surgery - Day of Surgery Patient Examined: Yes Patient H&P Reviewed: Yes Patient is NPO: Yes Beta Blockers: Yes
[2018-08-04] MEDS ORDERED: WATER FOR IRRIG STERILE IR ONE ×3 (09:40→10:27)
[2018-08-04] MEDS ORDERED: DILAUDID IV PRN (09:43)
[2018-08-04] MEDS ORDERED: SUBLIMAZE IV PRN (09:43)
[2018-08-04] MEDS ORDERED: LACTATED RINGERS 1,000 ML IV SCH (10:00)
[2018-08-04] MEDS ORDERED: ANCEF/STERILE WATER 2 GM/20 ML IV NR (10:06)
[2018-08-04] MEDS ORDERED: XYLOCAINE CARDIAC IV ONE (10:12)
[2018-08-04] MEDS ORDERED: VERSED ONE (10:14)
[2018-08-04] MEDS ORDERED: ZOFRAN ONE (10:27)
[2018-08-04] MEDS ORDERED: GENTAMICIN ONE (10:43)
--- NOTE | 2018-08-04 11:14 | Post Operative Note ---
Date of procedure: 08/04/18 Pre-op diagnosis: l ureteral stricture Post-op diagnosis: same Findings: as above Procedure: cysto stent exchange Anesthesia: NADYAA Surgeon: HERMILA HALLMAN Estimated blood loss: none Pathology: none Condition: stable Disposition: PACU
--- NOTE | 2018-08-04 11:15 | Discharge Summary ---
Short Stay Discharge Plan Activity: other (no straining ) Weight Bearing Status: Full Weight Bearing Diet: regular Special Instructions: other (inc fliids ) Durable Medical Equipment Needed Upon Discharge: other (has j stent ) Follow up with: SAV ZIEGLER II, MD [Primary Care Provider] - 7 Days HERMILA HALLMAN MD [Staff Physician] - 6 Weeks
[2018-08-04 12:14] VITALS: BP 161/74
--- NOTE | 2018-08-05 07:24 | XRay Report ---
AP ABDOMEN: HISTORY: Hydronephrosis. This examination is a communication coordinator film for a urologic procedure which was apparently not performed. The image demonstrates a left ureteral stent in good position. The bowel gas pattern is within normal limits. There are multiple surgical jared on both sides of the pelvis/bladder. No obvious pathologic calcifications are identified Left ureteral stent exchange was performed per the procedural note. IMPRESSION: Unremarkable abdomen. Left ureteral stent exchange.
--- NOTE | 2018-08-05 07:34 | Post Anesthesia Evaluation ---
- Post Anesthesia Evaluation Patient Participated: Yes Airway Patent: Yes Stable Respiratory Function: Yes Nausea/Vomiting: No Temp > 96.8F: Yes Pain Manageable: Yes Adequeate Hydration: Yes Anesthesia Complications: No Block Receding Appropriately: Not Applicable Patient on Ventilator: No Other Comments: From yesterday
--- NOTE | 2018-08-11 12:51 | Operative Report ---
PREOPERATIVE DIAGNOSIS: Left distal ureteral stricture. POSTOPERATIVE DIAGNOSIS: Left distal ureteral stricture. PROCEDURE: Cystoscopy, stent exchange. SURGEON: Dante Madsen MD ANESTHESIA: General. FINDINGS: This is a gentleman who has had prostate cancer and radiation therapy. He developed a stricture in the distal ureter. He now presents for stent exchange. DESCRIPTION OF PROCEDURE: The patient was brought to the operating room and placed on the operating table. Following induction of anesthesia, placed in lithotomy position, prepped and draped in usual sterile fashion. He was post-radical prostatectomy. There were no bladder lesions. The stent was removed through the meatus. A wire coiled in the kidney and a double J coiled back in the kidney. The patient tolerated the procedure well and brought to recovery in stable condition. JOB# [id number] TREVOR/CINDY
== END 2018-08-04 13:05 | disposition home or self-care (01) ==
LOC: OR 08:01
PROVIDERS: ATTEND Urology
DX: N13.1 Hydronephrosis with ureteral stricture, not elsewhere classified (principal); C61 Malignant neoplasm of prostate; I10 Essential (primary) hypertension; Z87.891 Personal history of nicotine dependence; Z79.82 Long term (current) use of aspirin; Z79.01 Long term (current) use of anticoagulants; Z79.899 Other long term (current) drug therapy; Z90.49 Acquired absence of other specified parts of digestive tract; Z87.442 Personal history of urinary calculi; Z87.440 Personal history of urinary (tract) infections; Z98.890 Other specified postprocedural states
CPT/HCPCS: 52332; 74018; A4217; C1769; C2617; J1170; J1580; J2001; J2250; J2405; J2704; J3010; J7120

== ENCOUNTER 2018-12-15 07:48 | Day surgery (SDC) | payer MEDICARE, OTHER ==
[2018-12-15] MEDS ORDERED: LACTATED RINGERS 1,000 ML IV SCH (08:00)
--- NOTE | 2018-12-15 08:57 | Anesthesia Day of Surgery ---
Anesthesia Day of Surgery - Day of Surgery Patient Examined: Yes Patient H&P Reviewed: Yes Patient is NPO: Yes Beta Blockers: Yes
--- NOTE | 2018-12-15 08:57 | Anesthesia Consultation ---
Anesthesia Consult and Med Hx Date of service: 12/15/18 - Airway Anesthetic Teeth Evaluation: Dentures ROM Head & Neck: Adequate Mental/Hyoid Distance: Adequate Mallampati Class: Class III Intubation Access Assessment: Possibly Difficult - Pulmonary Exam CTA: Yes - Cardiac Exam Cardiac Exam: RRR - Pre-Operative Health Status ASA Pre-Surgery Classification: ASA2 - Pulmonary Hx Smoking: Yes (STOPPED X 16 YRS-1/2PPD) Hx Respiratory Symptoms: No COPD: No Hx Sleep Apnea: No (GUILHERME PRE SCREEN HIGH RISK.) - Cardiovascular System Hx Hypertension: Yes Hx Heart Attack/AMI: No Hx Percutaneous Transluminal Coronary Angioplasty (PTCA): No Hx Cardia Arrhythmia: No - Central Nervous System Hx Seizures: No CVA: No Hx Psychiatric Problems: No - Gastrointestinal Hx Gastroesophageal Reflux Disease: No - Endocrine Hx Renal Disease: No Hx Liver Disease: No Hx Insulin Dependent Diabetes: No Hx Non-Insulin Dependent Diabetes: No Hx Thyroid Disease: No - Other Systems Hx Cancer: Yes Hx Obesity: No - Additional Comments Anesthesia Medical History Comments: No hx anesthetic complications. Last dose ASA 12/14/18.
[2018-12-15] MEDS ORDERED: SUBLIMAZE IV PRN (09:00)
[2018-12-15] MEDS ORDERED: VERSED IV NR (09:00)
[2018-12-15] MEDS ORDERED: COREG PO NR (09:00)
[2018-12-15] MEDS ORDERED: ANCEF/STERILE WATER 2 GM/20 ML IV NR (09:10)
[2018-12-15] MEDS ORDERED: NEURONTIN PO NR (09:12)
[2018-12-15] MEDS ORDERED: NORVASC PO SCH (10:00)
[2018-12-15] MEDS ORDERED: XYLOCAINE MPF 2% ONE (10:26)
[2018-12-15] MEDS ORDERED: DIPRIVAN 10 MG/ML IV ONE (10:26)
[2018-12-15] MEDS ORDERED: DILAUDID ONE (10:26)
[2018-12-15] MEDS ORDERED: OMNIPAQUE 300 MG/50 ML (CATH LAB) IV ONE (10:58)
--- NOTE | 2018-12-15 11:08 | Post Operative Note ---
Date of procedure: 12/15/18 Pre-op diagnosis: left ureteral stricture Post-op diagnosis: same Findings: as above Procedure: cysto stent Anesthesia: ARI Surgeon: HERMILA HALLMAN Estimated blood loss: none Condition: stable Disposition: PACU
--- NOTE | 2018-12-15 11:09 | Discharge Summary ---
Short Stay Discharge Plan Activity: other (no straining ) Weight Bearing Status: Full Weight Bearing Diet: regular Special Instructions: other (inc fluids ) Durable Medical Equipment Needed Upon Discharge: other (freddy nguyen in rr ) Follow up with: SAV ZIEGLER II, MD [Primary Care Provider] - 7 Days HERMILA HALLMAN MD [Staff Physician] - 6 Weeks
[2018-12-15] MEDS ORDERED: WATER FOR IRRIG STERILE IR ONE (11:23)
[2018-12-15] MEDS ORDERED: ZOFRAN ONE (11:26)
[2018-12-15] MEDS ORDERED: ROBINUL IV ONE (11:57)
[2018-12-15] MEDS ORDERED: ROBINUL ONE (12:00)
--- NOTE | 2018-12-15 12:18 | XRay Report ---
ABDOMEN 1 VIEW(S) INDICATION / CLINICAL INFORMATION: HYDRONEPHROSIS. COMPARISON: None available. FINDINGS: Fluoroscopy was provided by radiology for a urologic procedure. 2 separate AP fluoroscopic images of the abdomen are presented. A net lead developer image demonstrates a left ureteral stent in place. A second AP tish ge of the abdomen demonstrates left ureteral stent exchange which is in good position. The bowel gas pattern is unremarkable. There are multiple surgical clips on both sides of the pelvis, correlate with surgical history. IMPRESSION: Left ureteral stent exchange. Otherwise, unremarkable abdomen. Correlate with the urology report as n eeded. Signer Name: Hawk Pan Jr, MD Signed: 12/15/2018 12:13 PM Workstation Name: [id number]
[2018-12-15 14:56] VITALS: BP 143/70
--- NOTE | 2018-12-15 16:22 | Operative Report ---
PREOPERATIVE DIAGNOSES: Left ureteral stricture, chronic left hydronephrosis, human immunodeficiency viruses. POSTOPERATIVE DIAGNOSES: Left ureteral stricture, chronic left hydronephrosis, human immunodeficiency viruses. PROCEDURE: Cystoscopy, left stent exchange. SURGEON: Dante Madsen MD ANESTHESIA: General. FINDINGS: This is a gentleman with history of prostate cancer, seminal vesicle invasion, radiations, distal stricture, HIV. He now presents for stent exchange. DESCRIPTION OF PROCEDURE: The patient was brought to the operating room and placed on the operating table. Following induction of anesthesia, placed in lithotomy position, prepped and draped in usual sterile fashion. Stent was easily removed and a wire coiled up in the kidney. A 6-Tuvaluan double-J 24-cm coiled in the kidney and bladder. The patient tolerated the procedure well. No significant complications, brought to recovery in stable condition. Family notified. JOB# [id number] TREVOR/CINDY
== END 2018-12-15 07:49 | disposition home or self-care (01) ==
LOC: OR 07:48
PROVIDERS: ATTEND Urology
DX: N13.1 Hydronephrosis with ureteral stricture, not elsewhere classified (principal); B20 Human immunodeficiency virus [HIV] disease; I10 Essential (primary) hypertension; Z79.899 Other long term (current) drug therapy; Z79.82 Long term (current) use of aspirin; Z87.891 Personal history of nicotine dependence; Z85.46 Personal history of malignant neoplasm of prostate; Z87.442 Personal history of urinary calculi; Z87.440 Personal history of urinary (tract) infections; Z98.890 Other specified postprocedural states; Z86.2 Personal history of diseases of the blood and blood-forming organs and certain disorders involving the immune mechanism
CPT/HCPCS: 52332; 74018; A4217; C1758; C1769; C2617; J1170; J2250; J2405; J2704; J7120; Q9967

== ENCOUNTER 2019-03-31 10:17 | Day surgery (SDC) | payer BC, MEDICARE, OTHER ==
--- NOTE | 2019-03-31 10:59 | Anesthesia Consultation ---
Anesthesia Consult and Med Hx Date of service: 03/31/19 - Airway Anesthetic Teeth Evaluation: Dentures ROM Head & Neck: Adequate Mental/Hyoid Distance: Adequate Mallampati Class: Class II Intubation Access Assessment: Good - Pulmonary Exam CTA: Yes - Cardiac Exam Cardiac Exam: RRR - Pre-Operative Health Status ASA Pre-Surgery Classification: ASA2 Proposed Anesthetic Plan: General - Pulmonary Hx Smoking: Yes (STOPPED X 20 YRS) Hx Asthma: No Hx Respiratory Symptoms: No SOB: No COPD: No Hx Sleep Apnea: No (GUILHERME PRE SCREEN HIGH RISK) - Cardiovascular System Hx Hypertension: Yes Hx Heart Attack/AMI: No Hx Angina: No Hx Percutaneous Transluminal Coronary Angioplasty (PTCA): No Hx Cardia Arrhythmia: No Hx Heart Murmur: No - Central Nervous System Hx Neuromuscular Disorder: (s/p shingles; hx right leg fx) Hx Seizures: No CVA: No Hx Back Pain: Yes (LOWER OCC.) Hx Psychiatric Problems: No - Gastrointestinal Hx Gastroesophageal Reflux Disease: No - Endocrine Hx Renal Disease: No Hx End Stage Renal Disease: No Hx Liver Disease: No Hx Insulin Dependent Diabetes: No Hx Non-Insulin Dependent Diabetes: No Hx Thyroid Disease: No Hx Hypothyroidism: No - Hematic Hx Anemia: No - Other Systems Hx Alcohol Use: No Hx Substance Use: No Hx Cancer: Yes Hx Obesity: No
--- NOTE | 2019-03-31 10:59 | Anesthesia Day of Surgery ---
Anesthesia Day of Surgery - Day of Surgery Patient Examined: Yes Patient H&P Reviewed: Yes Patient is NPO: Yes
[2019-03-31] MEDS ORDERED: ONDANSETRON 4 MG/2 ML INJ IV PRN (11:00)
[2019-03-31] MEDS ORDERED: MIDAZOLAM 2 MG/2 ML INJ IV NR (11:00)
[2019-03-31] MEDS ORDERED: HYDROmorphone 1 MG/1 ML INJ IV PRN (11:00)
[2019-03-31] MEDS ORDERED: LACTATED RINGERS 1,000 ML IV SCH (11:00)
[2019-03-31] MEDS ORDERED: ceFAZolin/STERILE WATER 2 GM/20 ML SYRINGE IV NR (11:20)
[2019-03-31] MEDS ORDERED: LIDOCAINE MPF (2%) 20 MG/1 ML VIAL 5 ML ONE (11:43)
[2019-03-31] MEDS ORDERED: PROPOFOL 200 MG/20 ML VIAL IV ONE (11:44)
[2019-03-31] MEDS ORDERED: fentaNYL 100 MCG/2 ML INJ ONE (11:44)
--- NOTE | 2019-03-31 11:51 | Post Operative Note ---
Date of procedure: 03/31/19 Pre-op diagnosis: left hydro Post-op diagnosis: same Findings: as above Procedure: cysto stent exchange Anesthesia: ARI Surgeon: HERMILA HALLMAN Estimated blood loss: none Condition: stable Disposition: PACU
--- NOTE | 2019-03-31 11:52 | Discharge Summary ---
Short Stay Discharge Plan Activity: other (no straining ) Weight Bearing Status: Full Weight Bearing Diet: regular Special Instructions: other (inc fluids ) Durable Medical Equipment Needed Upon Discharge: other (has stent ) Follow up with: SAV ZIEGLER II, MD [Primary Care Provider] - 7 Days HERMILA HALLMAN MD [Staff Physician] - 6 Weeks
[2019-03-31] MEDS ORDERED: IOHEXOL 300 MG/ML 100ML IV ONE (12:10)
[2019-03-31] MEDS ORDERED: dexAMETHasone 20 MG/5 ML VIAL ONE (12:18)
[2019-03-31] MEDS ORDERED: ONDANSETRON 4 MG/2 ML INJ ONE (12:18)
--- NOTE | 2019-03-31 12:25 | Operative Report ---
PREOPERATIVE DIAGNOSES: Ureteral stricture, human immunodeficiency virus, history of prostate cancer and radiation. POSTOPERATIVE DIAGNOSES: Ureteral stricture, human immunodeficiency virus, history of prostate cancer and radiation. PROCEDURE: Cystoscopy, stent exchange. SURGEON: Dante Madsen M.D. ANESTHESIA: General. FINDINGS: This is a gentleman for stent exchange. The stent has been partially obstructed, has intermittent discomfort, now presents for stent exchange. DESCRIPTION OF PROCEDURE: The patient was brought to the operating room and placed on the operating table. Following induction of anesthesia, placed in lithotomy position, prepped and draped in usual sterile fashion. Scope was inserted. Stent was withdrawn. The wire went through the stent. Japanese double J coiled in the kidney and bladder. The patient tolerated the procedure well and brought to recovery in stable condition. JOB# [id number] TREVOR/CINDY
[2019-03-31] MEDS ORDERED: hydrALAZINE 20 MG/1 ML INJ ONE (13:14)
--- NOTE | 2019-03-31 13:45 | XRay Report ---
INTRAOPERATIVE FLUOROSCOPY: ABDOMEN INDICATION / CLINICAL INFORMATION: Left ureteral stent exchange, hydronephrosis. TECHNIQUE: Intraoperative spot images were obtained during the procedure. FINDINGS: 2 images obtained show left ureteral stent exchange. Fluoroscopy Time: 27 seconds. Fluoroscopy Images: 2. Signer Name: Cheikh Sebastian MD Signed: 03/31/2019 1:41 PM Workstation Name: [id number]
[2019-03-31] MEDS ORDERED: hydrALAZINE 20 MG/1 ML INJ IV ONE (14:16)
[2019-03-31 14:50] VITALS: BP 154/72
== END 2019-03-31 14:40 | disposition home or self-care (01) ==
LOC: OR 10:17
PROVIDERS: ATTEND Urology
DX: N13.5 Crossing vessel and stricture of ureter without hydronephrosis (principal); B20 Human immunodeficiency virus [HIV] disease; I10 Essential (primary) hypertension; Z90.49 Acquired absence of other specified parts of digestive tract; Z87.442 Personal history of urinary calculi; Z98.890 Other specified postprocedural states; Z85.46 Personal history of malignant neoplasm of prostate; Z79.899 Other long term (current) drug therapy; Z87.891 Personal history of nicotine dependence
CPT/HCPCS: 52332; 74018; C1769; C2617; J0360; J1100; J2250; J2405; J2704; J3010